=== PATIENT | female | born 1985 | race American Indian/Alaskan Native ===

== ENCOUNTER 2019-11-29 18:37 | Outpatient (CLI) | payer OTHER ==
[2019-11-29 21:09] VITALS: BP 113/74
--- NOTE | 2019-11-30 00:33 | Ultrasound Report ---
Limited OB ultrasound for biophysical profile FINDINGS: MITA is normal at 12.2 cm. breathing movement, spontaneous motion, tone and MITA all score 2/2 for a total of 8/8. heart rate is 130 bpm. Signer Name: Felipe Echols MD Signed: 11/30/2019 12:28 AM Workstation Name: [id number]
--- NOTE | 2019-11-30 07:34 | Ultrasound Report ---
ULTRASOUND OBSTETRIC LIMITED INDICATION / CLINICAL INFORMATION: fluid level. TECHNIQUE: Transabdominal ultrasound imaging. COMPARISON: None available. FINDINGS: HEART RATE (beats per minute): 130 AMNIOTIC FLUID INDEX (cm) = 12.2 PRESENTATION: Cephalic. ADDITIONAL FINDINGS: None. IMPRESSION: No significant abnormality. Signer Name: Wojciech Aguirre Jr, MD Signed: 11/30/2019 7:30 AM Workstation Name: [id number]
== END 2019-11-30 | disposition home or self-care (01) ==
LOC: TRG 18:37
PROVIDERS: ATTEND Obstetrics & Gynecology
DX: O47.1 False labor at or after 37 completed weeks of gestation (principal); Z3A.40 40 weeks gestation of pregnancy
CPT/HCPCS: 76815; 76819

== ENCOUNTER 2021-06-25 19:12 | Inpatient (IN) | payer OTHER ==
[2021-06-25] MEDS ORDERED: MINERAL OIL 30 ML ORAL LIQD PO PRN (21:48)
[2021-06-25] MEDS ORDERED: ACETAMINOPHEN 325 MG TAB PO PRN (21:48)
[2021-06-25] MEDS ORDERED: CARBOPROST TROMETHAMINE 250 MCG/1 ML INJ IM PRN (21:48)
[2021-06-25] MEDS ORDERED: LOPERAMIDE 2 MG CAP PO PRN (21:48)
[2021-06-25] MEDS ORDERED: LIDOCAINE (2%) 20 MG/1 ML VIAL 20 ML MDV INFILTRATI ONE (21:48)
[2021-06-25] MEDS ORDERED: TERBUTALINE 1 MG/1 ML INJ SUB-Q PRN (21:48)
[2021-06-25] MEDS ORDERED: NalbUPHINE 10 MG/1 ML INJ IV PRN (21:48)
[2021-06-25] MEDS ORDERED: ePHEDrine SULFATE 50 MG/1 ML INJ IV PRN (21:48)
[2021-06-25] MEDS ORDERED: ONDANSETRON 4 MG/2 ML INJ IV PRN (21:48)
[2021-06-25] MEDS ORDERED: OXYTOCIN 10 UNIT/1 ML INJ IM PRN (21:48)
[2021-06-25] MEDS ORDERED: METHYLERGONOVINE MALEATE 0.2 MG/ML VIAL IM PRN (21:48)
[2021-06-25] MEDS ORDERED: miSOPROStol 200 MCG TAB PR PRN (21:48)
[2021-06-25] MEDS ORDERED: BUTORPHANOL 2 MG/1 ML INJ IV PRN (21:48)
[2021-06-25] MEDS ORDERED: OXYTOCIN DRIP 30 UNITS/500 ML BAG IV SCH (22:00)
[2021-06-25] MEDS ORDERED: LACTATED RINGERS 1,000 ML IV SCH (22:00)
[2021-06-25 22:50] LABS: Hematocrit 31.5 % (30.3-42.9); Mean Corpuscular HGB Conc 35 % (30-34); Mean Corpuscular Volume 81 fl (79-97); Platelet Count 233 K/mm3 (140-440); Red Cell Distribution Width 14.7 % (13.2-15.2)
[2021-06-25 22:55] LABS: Mucus,Urine 2+ /HPF
[2021-06-25 23:03] LABS: Alanine Aminotransferase 11 units/L (7-56); Uric Acid 3.9 mg/dL (3.5-7.6)
[2021-06-25 23:26] LABS: Bilirubin,Urine Negative (Negative); Blood,Urine 3+ (Negative); Color,Urine Straw (Yellow); Urobilinogen,Urine < 2.0 mg/dL (<2.0)
--- NOTE | 2021-06-26 00:34 | History and Physical Report ---
History of Present Illness Date of examination: 06/26/21 Date of admission: 06/25/21 21:48 Chief complaint: Thinks her blood pressures are elevated and having labor pains History of present illness: Early entry to care at [facility]; co-managed with [facility] due to AMA, maternal obesity, and Suspected ASD (normal heart per [facility]). Past History Past Medical History: no pertinent history Past Surgical History: no surgical history Family/Genetic History: diabetes (Mother and Father), hypertension (Mother) Social history: no significant social history, single - Obstetrical History Expected Date of Delivery: 06/22/21 Actual Gestation: 40 Week(s) 4 Day(s) : 2 Para: 1 Hx # Term Pregnancies: 1 Number of Living Children: 1 #1 Gender: Female year: 21 Birthweight: 2.75 kg Method of Delivery: Vaginal Gestational age at delivery: 41 Complications: none Medications and Allergies Allergies Allergy/AdvReac Type Severity Reaction Status Date / Time peanut Allergy Rash Verified 11/29/19 21:49 Home Medications Medication Instructions Recorded Confirmed Last Taken Type Vit-Fe Fumar-FA [ 1 tab PO DAILY 06/25/21 06/25/21 3 Days Ago History Vitamin] ~06/22/21 Active Meds: Active Medications Acetaminophen (Acetaminophen 325 Mg Tab) 650 mg PO Q4H PRN PRN Reason: Pain, Mild (1-3) Butorphanol Tartrate (Butorphanol 2 Mg/1 Ml Inj) 2 mg IV Q2H PRN PRN Reason: Pain , Severe (7-10) Carboprost Tromethamine (Carboprost Tromethamine 250 Mcg/1 Ml Inj) 250 mcg IM ONCE PRN PRN Reason: Uterine Bleeding Ephedrine Sulfate (Ephedrine Sulfate 50 Mg/1 Ml Inj) 10 mg IV Q2M PRN PRN Reason: Hypotension Lactated Ringer's (Lactated Ringers) 1,000 mls @ 125 mls/hr IV DIRECT TAY Last Admin: 06/25/21 23:16 Dose: 125 mls/hr Documented by: Oxytocin/Sodium Chloride (Pitocin/Ns 30 Unit/500ml) 30 units in 500 mls @ 40 mls/hr IV TITR TAY; Protocol Loperamide HCl (Loperamide 2 Mg Cap) 2 mg PO ONCE PRN PRN Reason: give with Hemabate Methylergonovine Maleate (Methylergonovine Maleate 0.2 Mg/Ml Vial) 0.2 mg IM ONCE PRN PRN Reason: Uterine Bleeding Mineral Oil (Mineral Oil 30 Ml Oral Liqd) 30 ml PO QHS PRN PRN Reason: Constipation Misoprostol (Misoprostol 200 Mcg Tab) 800 mcg PA ONCE PRN PRN Reason: Uterine Bleeding Nalbuphine HCl (Nalbuphine 10 Mg/1 Ml Inj) 10 mg IV Q2H PRN PRN Reason: Pain, Moderate (4-6) Ondansetron HCl (Ondansetron 4 Mg/2 Ml Inj) 4 mg IV Q8H PRN PRN Reason: Nausea And Vomiting Oxytocin (Oxytocin 10 Unit/1 Ml Inj) 10 unit IM ONCE PRN PRN Reason: Uterine Bleeding Terbutaline Sulfate (Terbutaline 1 Mg/1 Ml Inj) 0.25 mg SUB-Q ONCE PRN PRN Reason: Hyperstimulation/Hypertonicity Review of Systems All systems: negative - Vital Signs Vital signs: Vital Signs Pulse BP Pulse Ox 86 138/87 100 06/25/21 20:00 06/25/21 20:00 06/25/21 20:00 Temp Pulse Resp BP Pulse Ox 98.8 F 104 H 18 127/74 99 06/25/21 20:20 06/26/21 00:19 06/25/21 22:56 06/25/21 23:03 06/26/21 00:19 - Physical Exam Breasts: Positive: normal Cardiovascular: Regular rate Lungs: Positive: Clear to auscultation, Normal air movement Abdomen: Positive: normal appearance, soft, normal bowel sounds Genitourinary (Female): Positive: normal external genitalia, normal perenium Vagina: Positive: normal moisture Uterus: Positive: enlarged Anus/Rectum: Positive: normal perianal skin Extremities: Positive: normal - Obstetrical FHR: category 1 Uterine Contraction Monitor Mode: External Cervical Dilatation: 5 (Vtx, Intact) Cervical Effacement Percentage: 70 station: -3 Uterine Contraction Pattern: Irregular Uterine Tone Measurement Phase: Resting Uterine Contraction Intensity: Moderate Results Result Diagrams: 06/25/21 22:14 06/25/21 22:14 Abnormal lab results 06/25/21 06/25/21 06/25/21 Range/Units 22:14 22:14 22:22 MCHC 35 H (30-34) % Creatinine 0.4 L (0.6-1.2) mg/dL Lactate Dehydrogenase 307 H (91-180) units/L Urine WBC (Auto) 8.0 H (0.0-6.0) /HPF All other labs normal. Assessment and Plan A: IUP @ 40 4/7 Weeks Category I Tracing Early Labor GBS Negative AMA Maternal Obesity P: Admit to L&D per Routine Orders PIH Labs Pitocin Augmentation
[2021-06-26] MEDS ORDERED: OXYTOCIN DRIP 30 UNITS/500 ML BAG IV SCH (00:42)
--- NOTE | 2021-06-26 02:15 | Progress Note ---
Assessment and Plan A: IUP @ 40 4/7 Weeks Category I Tracing Early Labor GBS Negative AMA Maternal Obesity P: AROM Continue Pitocin Augmentation Subjective - Subjective Date of service: 06/26/21 Interval history: Early entry to care at [facility]; co-managed with [facility] due to AMA, maternal obesity, and Suspected ASD (normal heart per [facility]). Patient reports: movement normal, contractions Objective - Vital Signs Vital Signs: Vital Signs - 12hr 06/25/21 06/25/21 06/25/21 20:00 20:05 20:10 Temperature Pulse Rate 82 86 89 Respiratory Rate Blood Pressure 138/87 Blood Pressure [Left] O2 Sat by Pulse 100 99 98 Oximetry O2 Sat by Pulse Oximetry [ Anterior Bilateral Throughout] 06/25/21 06/25/21 06/25/21 20:15 20:16 20:20 Temperature 98.8 F Pulse Rate 99 H 88 89 Respiratory 18 Rate Blood Pressure 133/82 Blood Pressure 131/77 [Left] O2 Sat by Pulse 98 98 Oximetry O2 Sat by Pulse Oximetry [ Anterior Bilateral Throughout] 06/25/21 06/25/21 06/25/21 20:25 20:30 20:32 Temperature Pulse Rate 95 H 93 H 86 Respiratory Rate Blood Pressure 131/77 Blood Pressure [Left] O2 Sat by Pulse 99 99 Oximetry O2 Sat by Pulse Oximetry [ Anterior Bilateral Throughout] 06/25/21 06/25/21 06/25/21 20:35 20:40 20:45 Temperature Pulse Rate 86 92 H 87 Respiratory Rate Blood Pressure Blood Pressure [Left] O2 Sat by Pulse 99 99 99 Oximetry O2 Sat by Pulse Oximetry [ Anterior Bilateral Throughout] 06/25/21 06/25/21 06/25/21 20:47 20:50 20:55 Temperature Pulse Rate 86 88 97 H Respiratory Rate Blood Pressure 131/79 Blood Pressure [Left] O2 Sat by Pulse 99 99 Oximetry O2 Sat by Pulse Oximetry [ Anterior Bilateral Throughout] 06/25/21 06/25/21 06/25/21 21:00 21:01 21:05 Temperature Pulse Rate 100 H 85 91 H Respiratory Rate Blood Pressure 134/81 Blood Pressure [Left] O2 Sat by Pulse 99 99 Oximetry O2 Sat by Pulse Oximetry [ Anterior Bilateral Throughout] 06/25/21 06/25/21 06/25/21 21:10 21:15 21:16 Temperature Pulse Rate 93 H 92 H 84 Respiratory Rate Blood Pressure 132/81 Blood Pressure [Left] O2 Sat by Pulse 99 99 Oximetry O2 Sat by Pulse Oximetry [ Anterior Bilateral Throughout] 06/25/21 06/25/21 06/25/21 21:20 21:25 21:30 Temperature Pulse Rate 91 H 95 H 88 Respiratory Rate Blood Pressure Blood Pressure [Left] O2 Sat by Pulse 99 98 99 Oximetry O2 Sat by Pulse Oximetry [ Anterior Bilateral Throughout] 06/25/21 06/25/21 06/25/21 21:32 21:35 21:40 Temperature Pulse Rate 86 85 87 Respiratory Rate Blood Pressure 138/85 Blood Pressure [Left] O2 Sat by Pulse 99 99 Oximetry O2 Sat by Pulse Oximetry [ Anterior Bilateral Throughout] 06/25/21 06/25/21 06/25/21 21:45 21:46 21:50 Temperature Pulse Rate 84 82 86 Respiratory Rate Blood Pressure 134/80 Blood Pressure [Left] O2 Sat by Pulse 99 99 Oximetry O2 Sat by Pulse Oximetry [ Anterior Bilateral Throughout] 06/25/21 06/25/21 06/25/21 21:55 22:00 22:01 Temperature Pulse Rate 85 86 84 Respiratory Rate Blood Pressure 135/79 Blood Pressure [Left] O2 Sat by Pulse 99 99 Oximetry O2 Sat by Pulse Oximetry [ Anterior Bilateral Throughout] 06/25/21 06/25/21 06/25/21 22:16 22:34 22:39 Temperature Pulse Rate 81 96 H 86 Respiratory Rate Blood Pressure 131/78 Blood Pressure [Left] O2 Sat by Pulse 99 99 Oximetry O2 Sat by Pulse Oximetry [ Anterior Bilateral Throughout] 06/25/21 06/25/21 06/25/21 22:44 22:49 22:54 Temperature Pulse Rate 89 92 H 86 Respiratory Rate Blood Pressure Blood Pressure [Left] O2 Sat by Pulse 99 100 99 Oximetry O2 Sat by Pulse Oximetry [ Anterior Bilateral Throughout] 06/25/21 06/25/21 06/25/21 22:56 22:59 23:03 Temperature Pulse Rate 92 H 83 Respiratory 18 Rate Blood Pressure 127/74 Blood Pressure [Left] O2 Sat by Pulse 100 100 Oximetry O2 Sat by Pulse 100 Oximetry [ Anterior Bilateral Throughout] 06/25/21 06/25/21 06/25/21 23:04 23:09 23:14 Temperature Pulse Rate 93 H 84 80 Respiratory Rate Blood Pressure Blood Pressure [Left] O2 Sat by Pulse 98 99 100 Oximetry O2 Sat by Pulse Oximetry [ Anterior Bilateral Throughout] 06/25/21 06/25/21 06/25/21 23:19 23:24 23:29 Temperature Pulse Rate 100 H 94 H 92 H Respiratory Rate Blood Pressure Blood Pressure [Left] O2 Sat by Pulse 99 99 99 Oximetry O2 Sat by Pulse Oximetry [ Anterior Bilateral Throughout] 06/25/21 06/25/21 06/25/21 23:34 23:39 23:44 Temperature Pulse Rate 81 83 80 Respiratory Rate Blood Pressure Blood Pressure [Left] O2 Sat by Pulse 99 99 99 Oximetry O2 Sat by Pulse Oximetry [ Anterior Bilateral Throughout] 06/25/21 06/25/21 06/25/21 23:49 23:54 23:59 Temperature Pulse Rate 86 81 79 Respiratory Rate Blood Pressure Blood Pressure [Left] O2 Sat by Pulse 100 99 99 Oximetry O2 Sat by Pulse Oximetry [ Anterior Bilateral Throughout] 06/26/21 06/26/21 06/26/21 00:04 00:09 00:14 Temperature Pulse Rate 89 83 88 Respiratory Rate Blood Pressure Blood Pressure [Left] O2 Sat by Pulse 99 98 99 Oximetry O2 Sat by Pulse Oximetry [ Anterior Bilateral Throughout] 06/26/21 06/26/21 06/26/21 00:19 00:24 00:29 Temperature Pulse Rate 104 H 80 81 Respiratory Rate Blood Pressure Blood Pressure [Left] O2 Sat by Pulse 99 100 100 Oximetry O2 Sat by Pulse Oximetry [ Anterior Bilateral Throughout] 06/26/21 06/26/21 06/26/21 00:34 00:39 00:44 Temperature Pulse Rate 80 86 84 Respiratory Rate Blood Pressure Blood Pressure [Left] O2 Sat by Pulse 99 100 99 Oximetry O2 Sat by Pulse Oximetry [ Anterior Bilateral Throughout] 06/26/21 06/26/21 06/26/21 00:49 00:54 00:59 Temperature Pulse Rate 80 79 78 Respiratory Rate Blood Pressure Blood Pressure [Left] O2 Sat by Pulse 99 99 99 Oximetry O2 Sat by Pulse Oximetry [ Anterior Bilateral Throughout] 06/26/21 06/26/21 06/26/21 01:04 01:09 01:14 Temperature Pulse Rate 83 83 86 Respiratory Rate Blood Pressure Blood Pressure [Left] O2 Sat by Pulse 100 100 99 Oximetry O2 Sat by Pulse Oximetry [ Anterior Bilateral Throughout] 06/26/21 06/26/21 06/26/21 01:19 01:24 01:29 Temperature Pulse Rate 79 91 H 81 Respiratory Rate Blood Pressure Blood Pressure [Left] O2 Sat by Pulse 100 99 99 Oximetry O2 Sat by Pulse Oximetry [ Anterior Bilateral Throughout] 06/26/21 06/26/21 06/26/21 01:34 01:39 01:44 Temperature Pulse Rate 90 78 84 Respiratory Rate Blood Pressure Blood Pressure [Left] O2 Sat by Pulse 100 99 99 Oximetry O2 Sat by Pulse Oximetry [ Anterior Bilateral Throughout] 06/26/21 06/26/21 06/26/21 01:49 01:54 01:59 Temperature Pulse Rate 95 H 88 83 Respiratory Rate Blood Pressure Blood Pressure [Left] O2 Sat by Pulse 98 99 99 Oximetry O2 Sat by Pulse Oximetry [ Anterior Bilateral Throughout] 06/26/21 06/26/21 02:04 02:09 Temperature Pulse Rate 78 110 H Respiratory Rate Blood Pressure Blood Pressure [Left] O2 Sat by Pulse 99 99 Oximetry O2 Sat by Pulse Oximetry [ Anterior Bilateral Throughout] - Exam Breasts: normal Cardiovascular: Regular rate Lungs: Normal air movement Abdomen: Present: normal appearance, soft Uterus: Present: normal, firm, fundal height above umbilicus FHR: category 1 Uterine Contraction Monitor Mode: External Cervical Dilatation: 5.5 (Small amount of clear fluid upon AROM @ 0209) Cervical Effacement Percentage: 80 station: -2 Uterine Contraction Pattern: Regular Uterine Tone Measurement Phase: Resting Uterine Contraction Intensity: Moderate Extremities: normal - Labs Labs: Abnormal Labs 06/25/21 06/25/21 06/25/21 22:14 22:14 22:22 MCHC 35 H Creatinine 0.4 L Lactate Dehydrogenase 307 H Urine WBC (Auto) 8.0 H Laboratory Results - last 24 hr 06/25/21 06/25/21 06/25/21 22:14 22:14 22:14 WBC 10.8 RBC 3.90 Hgb 11.0 Hct 31.5 MCV 81 MCH 28 MCHC 35 H RDW 14.7 Plt Count 233 Creatinine Estimated GFR Uric Acid AST ALT Lactate Dehydrogenase Urine Color Urine Turbidity Urine pH Ur Specific [place] Urine Protein Urine Glucose (UA) Urine Ketones Urine Blood Urine Nitrite Ur Reducing Substances Urine Bilirubin Urine Ictotest Urine Urobilinogen Ur Leukocyte Esterase Urine WBC (Auto) Urine RBC (Auto) Urine Mucus Syphilis IgG Antibody Nonreactive Blood Type O POSITIVE Antibody Screen Negative 06/25/21 06/25/21 22:14 22:22 WBC RBC Hgb Hct MCV MCH MCHC RDW Plt Count Creatinine 0.4 L Estimated GFR > 60 Uric Acid 3.9 AST 21 ALT 11 Lactate Dehydrogenase 307 H Urine Color Straw Urine Turbidity Hazy Urine pH 6.0 Ur Specific [place] 1.030 Urine Protein 100 mg/dl Urine Glucose (UA) Negative Urine Ketones 100 Urine Blood 3+ Urine Nitrite Negative Ur Reducing Substances Not Reportable Urine Bilirubin Negative Urine Ictotest Not Reportable Urine Urobilinogen < 2.0 Ur Leukocyte Esterase Trace Urine WBC (Auto) 8.0 H Urine RBC (Auto) 110.0 Urine Mucus 2+ Syphilis IgG Antibody Blood Type Antibody Screen
[2021-06-26] MEDS ORDERED: fentaNYL 100 MCG/2 ML INJ IV PRN (03:33)
[2021-06-26] MEDS ORDERED: LIDOCAINE (2%) 20 MG/1 ML VIAL 20 ML MDV INFILTRATI ONE ×2 (04:05→04:34)
--- NOTE | 2021-06-26 05:18 | Procedure Note ---
OB Delivery Note - Delivery Date of Delivery: 06/26/21 (0410) Surgeon: RO DELGADO Estimated blood loss: other (400) - Vaginal Delivery presentation: vertex Delivery position: OA Delivery induction: none Delivery augmentation: rupture of membranes, pitocin Delivery monitor: external FHT, external uterine Route of delivery: Delivery placenta: spontaneous Delivery cord: nuchal cord, 3 umbilical vessels Episiotomy: none Delivery laceration: 2nd degree Delivery repair: vicryl Anesthesia: local Delivery comments: of live 7'14 male over a 2nd degree perineal and left labial laceration under IV Pain Control with Apgars of 8 and 9 at 0410 on 06/26/2021. Very tight nuchal cord x1 that avulsed upon manual reduction prior to delivery of the anterior shoulder. Cord immediately clamped upon delivery of the infant body and passed directly to awaiting NICU team. Spontaneous delivery of placenta complete and intact with [place] side presenting at 0413. Fundus is firm and midline located 4 below the U. Lochia is scant. Cord blood collected. Lacerations repaired with 2-[address]-1 under local 2% Lidocaine. Placenta discarded. - Infant A at 1 minute: 8 at 5 minutes: 9 Gender: Male (7'14)
[2021-06-26] MEDS ORDERED: diphenhydrAMINE 25 MG CAP PO PRN (05:19)
[2021-06-26] MEDS ORDERED: WITCH HAZEL/ GLYCERIN PAD TP PRN (05:19)
[2021-06-26] MEDS ORDERED: HYDROcodone/ACETAMINOPHEN 5-325 MG TAB PO PRN (05:19)
[2021-06-26] MEDS ORDERED: LANOLIN/ZINC/DIMETHICONE (LANSINOH) 7 GM TP PRN (05:19)
[2021-06-26] MEDS: IBUPROFEN 600 MG TAB PO SCH ×3 (10:57→23:17)
[2021-06-26] MEDS: PRENATAL VIT27-FE FUMARATE-FOLIC ACID VIT TAB PO SCH (10:57)
[2021-06-26 17:15] LABS: Hematocrit 26.4 % (30.3-42.9)
[2021-06-27] MEDS: IBUPROFEN 600 MG TAB PO SCH ×3 (05:56→17:54)
--- NOTE | 2021-06-27 10:28 | Progress Note ---
Assessment and Plan nl pp exam. possible d/c in am. Subjective - Subjective Date of service: 06/27/21 Principal diagnosis: term , Patient reports: appetite normal, voiding normally, pain well controlled, ambulating normally : doing well Objective - Vital Signs Latest vital signs: Vital Signs Temp Pulse Resp BP Pulse Ox Pulse Ox 06/27/21 08:35 98.3 F 84 18 120/80 96 06/27/21 05:55 98 06/27/21 03:25 98 06/27/21 01:20 98 06/27/21 00:14 98.6 F 83 20 111/73 98 06/26/21 23:15 97 06/26/21 21:50 97 06/26/21 19:35 97 06/26/21 17:02 16 06/26/21 15:48 98.4 F 93 H 18 119/71 98 06/26/21 11:48 98.7 F 87 18 120/75 100 06/26/21 10:57 16 Intake and Output 06/26/21 06/27/21 06/27/21 23:59 07:59 15:59 Intake Total 240 720 Output Total 350 Balance -110 720 Intake: Oral 240 720 Output: Urine 350 Void 350 Other: Total, Intake Amount 240 240 Total, Output Amount 350 # Voids Void 1 1 - Exam Breasts: Present: normal Abdomen: Present: normal appearance, soft Uterus: Present: normal, firm Extremities: Present: normal Incision: Present: dry, intact - Labs Labs: Abnormal lab results 06/26/21 Range/Units 16:51 Hgb 9.0 L (10.1-14.3) gm/dl Hct 26.4 L (30.3-42.9) %
[2021-06-27] MEDS: PRENATAL VIT27-FE FUMARATE-FOLIC ACID VIT TAB PO SCH (11:08)
--- NOTE | 2021-06-27 18:31 | Discharge Summary ---
Providers - Providers Date of Admission: 06/25/21 21:48 Date of discharge: 06/27/21 Attending physician: JERRI ANDREA MD Primary care physician: JERRI ANDREA MD Hospitalization Delivery: Episiotomy: none Laceration: none Discharge diagnosis: IUP at term delivered Condition at discharge: Good Disposition: 01 HOME / SELF CARE / HOMELESS Plan - Provider Discharge Summary Additional instructions: [] Smoking cessation referral if applicable(refer to patient education folder for contact #) [] Refer to [facility]'s [facility] Booklet Call your doctor immediately for: * Fever > 100.5 * Heavy vaginal bleeding ( >1 pad per hour) * Severe persistent headache * Shortness of breath * Reddened, hot, painful area to leg or breast * Drainage or odor from incision. * Keep incision clean and dry at all times and follow doctor's instructions regarding bathing/showering - Follow up plan Follow up: JERRI ANDREA MD [Primary Care Provider] - 7 Days
[2021-06-27 18:34] VITALS: BP 126/89
== END 2021-06-27 20:20 | disposition home or self-care (01) | DRG 807 ==
LOC: TRG 19:12 → APU 19:14 → TRG 21:48 → LD 21:48 → OB 06-26 06:09
PROC: 10E0XZZ Delivery of Products of Conception, External Approach (ICD-10-PCS; principal; 2021-06-26)
PROC: 0KQM0ZZ Repair Perineum Muscle, Open Approach (ICD-10-PCS; 2021-06-26)
PROC: 10907ZC Drainage of Amniotic Fluid, Therapeutic from Products of Conception, Via Natural or Artificial Opening (ICD-10-PCS; 2021-06-26)
DX: O69.81X0 Labor and delivery complicated by cord around neck, without compression, not applicable or unspecified (principal); Z37.0 Single live birth; Z3A.40 40 weeks gestation of pregnancy; Z20.822 Contact with and (suspected) exposure to COVID-19; O99.214 Obesity complicating childbirth; O70.1 Second degree perineal laceration during delivery; Z91.010 Allergy to peanuts
CPT/HCPCS: 36415; 59025; 81001; 82565; 83615; 84450; 84460; 84550; 85014; 85018; 85027; 86592; 86850; 86900; 86901; G0378; A6250; J2405; J2590; J3010; J7120; U0003